=== PATIENT | male | born 1965 | race Caucasian/White ===

== ENCOUNTER 2023-05-03 17:53 | Emergency (ER) | payer OTHER, SELFPAY ==
[2023-05-03] VITALS (18 sets, daily range): BP systolic 133–166; BP diastolic 73–96; PULSE 62–134; RESP 10–23; TEMP 36.5; O2SAT 96–100; BMI 30.9
--- NOTE | 2023-05-03 18:09 | DI.RAD.S_ITS ---
PROCEDURE: XR CHEST 1V INDICATIONS: chest pain TECHNIQUE: One view of the chest was acquired. COMPARISON: None. FINDINGS: Surgical changes and devices: Upper abdominal postoperative changes are seen. Lungs and pleura: An incomplete inspiratory result is noted, causing a crowded appearance to the lung markings. No focal infiltrates are seen. No pneumothorax or significant pleural effusions are seen. Mediastinum: Mediastinal contours appear normal. Heart size is normal. Bones and chest wall: No suspicious bony lesions. Age-appropriate bony degenerative changes are seen. Overlying soft tissues appear unremarkable. IMPRESSION: Limited portable chest examination, without a significant cardiopulmonary abnormality identified. Postoperative and degenerative changes are seen. Dictated by: Chavo Garzon M.D. on 05/03/2023 at 17:51 Approved by: Chavo Garzon M.D. on 05/03/2023 at 17:51
[2023-05-03 18:39] LABS: Add Manual Diff / Slide Review NO; Basophils Absolute Auto 0 /uL (0-100); Basophils Percent Auto 0.5 % (0-2); Eosinophils Absolute Auto 100 /uL (0-450); Eosinophils Percent Auto 1.2 % (2-4); Hematocrit 51.2 % (41-53); Hemoglobin 17.8 g/dL (13.5-17.5); Lymphocytes Absolute Auto 2400 /uL (1100-4500); Lymphocytes Percent Auto 23.3 % (25-40); Mean Corpuscular HGB Conc 34.8 % (30-36); Mean Corpuscular Hemoglobin 29.9 PG (26-34); Mean Corpuscular Volume 85.7 fL (80-100); Monocytes Absolute Auto 800 /uL (0-900); Monocytes Percent Auto 7.8 % (3-14); Neutrophils Absolute Auto 6900 /uL (1500-7000); Neutrophils Percent Auto 67.2 % (50-75); Platelet Count 215 X10^3/uL (150-400); Red Blood Cell Count 5.97 X10^6/uL (4.5-5.9); Red Cell Distribution Width 13.2 % (11.6-14.8); White Blood Cell Count 10.3 X10^3/uL (4.5-11.0)
[2023-05-03 18:50] LABS: PTT Partial Thromboplastin Tim 31 SECONDS (26-36)
[2023-05-03 18:53] LABS: Alanine Aminotransferase 60 IU/L (<50); Albumin 4.4 g/dL (3.5-5.0); Albumin Globulin Ratio 1.5 (1.0-2.8); Alkaline Phosphatase 46 U/L (38-126); Aspartate Aminotransferase 46 IU/L (17-59); Bilirubin Total 0.7 mg/dL (0.2-1.3); Blood Urea Nitrogen 19 mg/dL (9-20); Calcium 9.3 mg/dL (8.4-10.2); Carbon Dioxide 24 mmol/L (22-32); Chloride 102 mmol/L (98-107); Creatine Kinase 442 U/L (55-170); Estimated Glomerular Filt Rate > 60 mL/min (>60); Glucose 107 mg/dL (70-100); HEMOLYSIS 41 (0-50); Lipase 87 U/L (23-300); Magnesium 1.9 mg/dL (1.6-2.3); Potassium 4.1 mmol/L (3.4-5.1); Sodium 136 mmol/L (137-145); Total Protein 7.4 g/dL (6.3-8.2)
[2023-05-03 19:03] LABS: Troponin I 0.021 ng/mL (0.01-0.034)
[2023-05-03] MEDS: dilTIAZem 5 MG/ML SDV 10 MG IV (20:01)
[2023-05-03] MEDS: SODIUM CHLORIDE 0.9% 1,000 ML 1000 ML IV (20:01)
[2023-05-03 20:03] LABS: D Dimer 242 ng/ml (<500)
[2023-05-03 20:14] LABS: NT-proBNP (BNP-Adult 18+) 1110 pg/mL (<125)
[2023-05-03] MEDS: DILTIAZEM 125 MG/125 ML PIGGYBACK IV (22:12)
--- NOTE | 2023-05-03 22:23 | ED.CHESTPAIN ---
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 They were visiting [place] and thought it was from [place] but has been slowly progressive. He is little bit worse when he ambulates. He denies pain but does state there is some tightness. He is felt little lightheaded but no syncope. He states that is only when he is ambulating no cough cold or congestion. Patient states no orthopnea. No nausea or vomiting, no diaphoresis. No new swelling in extremities. No new urinary symptoms. Patient had little bit of diarrhea for the past 2 days which has since stopped. No black or bloody stools. Patient states no medical problems currently. No daily medications. He would a large cyst removed when he was at child from his abdomen. He had a GI bleed several years ago and had coiling of the mesenteric vessel. No known drug allergies. No tobacco, 1 or 2 alcoholic drinks weekly, no illicit. Patient's states he does not really follow regularly with a primary care. His who is at bedside was a nurse practitioner with a local cardiology group. They note that his dad has a history of atrial fibrillation and CHF. Related Data Previous Rx's Medication Instructions Recorded diltiazem HCl 180 mg 180 mg PO DAILY #10 caps 05/03/23 capsule,extended release 24 hr Allergies Allergy/AdvReac Type Severity Reaction Status Date / Time No Known Drug Allergies Allergy Verified 05/03/23 18:02 Review of Systems Review of Systems ROS Unobtainable: All systems reviewed & are unremarkable except as noted in HPI and below Patient History Medical History GI bleed Social History Smoking Status: Never smoker Smoking Status: Never smoker alcohol intake frequency: holidays/special occasions only Substance Use Type: does not use Exam Narrative Exam Narrative: GENERAL: Alert and oriented x three, male in mild distress. HEENT: Head normocephalic, atraumatic, EOMI, pupils reactive, face symmetric, moist mucous membranes NECK: Supple, full range of motion CARDIOVASCULAR: Irregularly regular rate and rhythm without murmurs, rubs or gallops. No JVD. No swelling bilateral lower extremities. RESPIRATORY: Breath sounds equal bilaterally, no wheezes rales or rhonchi. No tachypnea, no accessory muscle use. Speaks in full sentences. ABDOMEN: Soft, nontender. Normoactive bowel sounds all 4 quadrants. No guarding or rebound, rigidity, no mass, patient has large oblique incision that is clearly healed his left abdomen. : No CVA tenderness EXTREMITIES: Normal range of motion, no clubbing or edema. 2+ pulses bilateral lower extremities. Neurovascularly intact NEUROLOGICAL: Cranial nerves II through XII grossly intact. Moving all extremities SKIN: Warm, dry, no petechiae, no rashes or lesions. Initial Vital Signs Initial Vital Signs: Vital Signs Temperature 97.7 F 05/03/23 18:02 Pulse Rate 62 05/03/23 18:02 Respiratory Rate 17 05/03/23 18:02 Blood Pressure 141/81 H 05/03/23 18:02 Pulse Oximetry 100 05/03/23 18:02 Oxygen Delivery Method Room Air 05/03/23 18:02 Course Orders Ordered: Discontinued Medications Aspirin (Aspirin 81 Mg Chew Tab) 324 mg PO NOW ONE Stop: 05/03/23 18:10 Last Admin: 05/03/23 19:58 Dose: Not Given Documented By: Diltiazem HCl (Diltiazem 5 Mg/Ml Sdv) 10 mg IV NOW ONE Stop: 05/03/23 19:54 Last Admin: 05/03/23 20:01 Dose: 10 mg Documented By: Diltiazem HCl (Diltiazem Cd 180 Mg Cap) 180 mg PO NOW ONE Stop: 05/03/23 22:48 Last Admin: 05/03/23 22:57 Dose: 180 mg Documented By: Sodium Chloride (Normal Saline 0.9%) 1,000 mls @ 1,000 mls/hr IV BOLUS ONE Stop: 05/03/23 20:52 Last Infusion: 05/03/23 20:42 Dose: 0 mls/hr Documented By: Admin: 05/03/23 20:01 Dose: 1,000 mls/hr Documented By: DILTIAZEM (Diltiazem 125 Mg/125 Ml-D5w) 125 mg in 125 mls @ 5 mls/hr IV TITRATE CORINNE; Protocol Last Titration: 05/03/23 22:56 Dose: 0 mg/hr, 0 mls/hr Documented By: Titration: 05/03/23 22:32 Dose: 10 mg/hr, 10 mls/hr Documented By: Admin: 05/03/23 22:12 Dose: 5 mg/hr, 5 mls/hr Documented By: Vital Signs Vital signs: Vital Signs - 8 hr 05/03/23 22:15 05/03/23 22:30 05/03/23 22:30 Pulse Rate 116 H 128 H Respiratory Rate 20 19 Blood Pressure 160/91 H Pulse Oximetry 98 97 05/03/23 22:45 05/03/23 22:45 05/03/23 23:00 Pulse Rate 128 H Respiratory Rate 22 Blood Pressure 157/93 H 151/80 H Pulse Oximetry 98 05/03/23 23:00 Pulse Rate 117 H Respiratory Rate 21 Blood Pressure Pulse Oximetry 98 MDM - Chest Pain Lab Data 05/03/23 18:30 05/03/23 18:30 Labs: Lab Results 05/03/23 05/03/23 05/03/23 Range/Units 18:30 18:30 18:30 WBC 10.3 (4.5-11.0) X10^3/uL RBC 5.97 H (4.5-5.9) X10^6/uL Hgb 17.8 H (13.5-17.5) g/dL Hct 51.2 (41-53) % MCV 85.7 (80-100) fL MCH 29.9 (26-34) PG MCHC 34.8 (30-36) % RDW 13.2 (11.6-14.8) % Plt Count 215 (150-400) X10^3/uL Neut % (Auto) 67.2 (50-75) % Lymph % (Auto) 23.3 L (25-40) % [place] % (Auto) 7.8 (3-14) % Eos % (Auto) 1.2 L (2-4) % Baso % (Auto) 0.5 (0-2) % Neut # (Auto) 6900 (7581-7114) /uL Lymph # (Auto) 2400 (2048-1600) /uL [place] # (Auto) 800 (0-900) /uL Eos # (Auto) 100 (0-450) /uL Baso # (Auto) 0 (0-100) /uL PT 11.0 (10.1-12.7) SECONDS INR 1.0 (0.9-1.3) APTT 31 (26-36) SECONDS D-Dimer (<500) ng/ml Sodium 136 L (137-145) mmol/L Potassium 4.1 (3.4-5.1) mmol/L Chloride 102 (98-107) mmol/L Carbon Dioxide 24 (22-32) mmol/L BUN 19 (9-20) mg/dL Creatinine 1.27 H (0.66-1.25) mg/dL Estimated GFR > 60 (>60) mL/min BUN/Creatinine Ratio 15.0 (6-22) Glucose 107 H (70-100) mg/dL Calcium 9.3 (8.4-10.2) mg/dL Magnesium 1.9 (1.6-2.3) mg/dL Total Bilirubin 0.7 (0.2-1.3) mg/dL AST 46 (17-59) IU/L ALT 60 H (<50) IU/L Alkaline Phosphatase 46 (38-126) U/L Total Creatine Kinase 442 H (55-170) U/L Troponin I 0.021 (0.01-0.034) ng/mL NT-Pro-B Natriuret Pep (<125) pg/mL Total Protein 7.4 (6.3-8.2) g/dL Albumin 4.4 (3.5-5.0) g/dL Globulin 3.0 (1.7-4.1) g/dL Albumin/Globulin Ratio 1.5 (1.0-2.8) Lipase 87 (23-300) U/L 05/03/23 05/03/23 Range/Units 18:30 18:30 WBC (4.5-11.0) X10^3/uL RBC (4.5-5.9) X10^6/uL Hgb (13.5-17.5) g/dL Hct (41-53) % MCV (80-100) fL MCH (26-34) PG MCHC (30-36) % RDW (11.6-14.8) % Plt Count (150-400) X10^3/uL Neut % (Auto) (50-75) % Lymph % (Auto) (25-40) % [place] % (Auto) (3-14) % Eos % (Auto) (2-4) % Baso % (Auto) (0-2) % Neut # (Auto) (3627-5802) /uL Lymph # (Auto) (3102-0474) /uL [place] # (Auto) (0-900) /uL Eos # (Auto) (0-450) /uL Baso # (Auto) (0-100) /uL PT (10.1-12.7) SECONDS INR (0.9-1.3) APTT (26-36) SECONDS D-Dimer 242 (<500) ng/ml Sodium (137-145) mmol/L Potassium (3.4-5.1) mmol/L Chloride (98-107) mmol/L Carbon Dioxide (22-32) mmol/L BUN (9-20) mg/dL Creatinine (0.66-1.25) mg/dL Estimated GFR (>60) mL/min BUN/Creatinine Ratio (6-22) Glucose (70-100) mg/dL Calcium (8.4-10.2) mg/dL Magnesium (1.6-2.3) mg/dL Total Bilirubin (0.2-1.3) mg/dL AST (17-59) IU/L ALT (<50) IU/L Alkaline Phosphatase (38-126) U/L Total Creatine Kinase (55-170) U/L Troponin I (0.01-0.034) ng/mL NT-Pro-B Natriuret Pep 1110 H (<125) pg/mL Total Protein (6.3-8.2) g/dL Albumin (3.5-5.0) g/dL Globulin (1.7-4.1) g/dL Albumin/Globulin Ratio (1.0-2.8) Lipase (23-300) U/L Imaging Data Chest x-ray: Radiologist's Impression: Close Chest X-Ray (Signed) Chavo Garzon - 05/03/23 Launch?[address] [address] XRay Report Signed Patient: Sohan Brown MR#: [id number] : 1965 Acct:[id number] Age/Sex: 57 / M Date of Service: 05/03/23 Loc: ED Accession Number: [id number] ?? Procedure: XR chest 1V Ordering Provider: Jacinta Negrete D.O. PROCEDURE:? XR CHEST 1V ? INDICATIONS:? chest pain ? TECHNIQUE:? One view of the chest was acquired.? ? COMPARISON:? None. ? FINDINGS:? ? Surgical changes and devices:? Upper abdominal postoperative changes are seen. ? Lungs and pleura:? An incomplete inspiratory result is noted, causing a crowded appearance to the lung markings.? No focal infiltrates are seen.? No pneumothorax or significant pleural effusions are seen. ? ? Mediastinum:? Mediastinal contours appear normal.? Heart size is normal.? ? Bones and chest wall:? No suspicious bony lesions.? Age-appropriate bony degenerative changes are seen.? Overlying soft tissues appear unremarkable.? ? ? IMPRESSION:? ? Limited portable chest examination, without a significant cardiopulmonary abnormality identified.? ? Postoperative and degenerative changes are seen.? Dictated by: Chavo Garzon M.D. on 05/03/2023 at 17:51 ? ? Approved by: Chavo Garzon M.D. on 05/03/2023 at 17:51?? ECG Data Attestation: I personally reviewed and interpreted this ECG as follows: Interpretation: EKG 1 AFib with RVR, rate of 133, QRS 80, QTC 398. No acute ST elevation depression. EKG 2 AFib RVR rate of 124 QRS is [address] QTC [address] No acute ST elevation, no significant dynamic changes noted. EKG 2. AFib rate of 108 QRS 80 QTC 444. No dynamic changes appears similar to prior nonspecific change. MDM Narrative Medical decision making narrative: 57-year-old male presents with complaint of chest tightness for the past 3 days he does not have any sensation of fast heart rate, appears to have been in AFib RVR likely for the past 3 days. He is had some mild shortness of breath lightheadedness worse with exertion. He has been maintaining his blood pressure. Labs show hemoglobin of 17 white count of 10.3 platelets of 215 coags are negative D-dimer is negative, creatinine is 1.27, his states that is his normal baseline. BUN 19, potassium is 4.1 with sodium 136 Mag is 1.9, ALT is total CK 442 troponins 0.021 BNP is 11 10. Patient chest x-ray shows no acute change EKG showed AFib RVR, no dynamic changes. Patient states he is feeling comfortable currently. Discussed with patient he received 10 mg of dealt had some slowing but continued to be tachycardic does not feel to be patient for a cardioversion as it has been 3 days and may have been in AFib before this. Patient was put on Dilt drip. Patient does not wish to stay, he understands risks versus benefits and discuss these with his who has been a cardiology nurse practitioner in the past. He elects to return home we will give a dose of oral medication for rate control prescription. Discussed anticoagulation with his history of GI bleed we will hold off at this point and they will discuss with Cardiology. states she can facilitate short-term follow-up. Discussed BNP is elevated but no priors for comparison no other changes consistent with heart failure acutely at this time will hold off on any diuretic. Discussed return precautions. Patient was told he can return at any time. Discussed that , CA, stroke or all potentials and that patient should not discharge home. Patient and both expressed understanding. Discharge Plan Departure Patient Disposition: Left Against Medical Advice Clinical Impression: Atrial fibrillation with rapid ventricular response, Elevated brain natriuretic peptide (BNP) level, Left against medical advice Activity Restrictions/Additional Instructions: Please follow-up with your physician/Cardiology for recheck in the next 24-48 hours. Please call for an appointment. It is not recommended that you discharge home, I recommend that we keep you with medication running continuously 3 or IV to control her atrial fibrillation and help prevent worsening cardiac issues, heart failure, CA or potential . Take diltiazem, this may not adequately control your heart rate you may need adjustment of your medication. Prescription sent to [facility] in [place]. Talk with your physician about anticoagulation and your history of gi bleed. Please return for new or worsening symptoms new chest pain, lightheadedness, passing out, increasing shortness of breath, new swelling in your extremities, if you are having any worsening symptoms or would like to return for further treatment at any time. Prescriptions: New diltiazem HCl 180 mg capsule,extended release 24hr 180 mg PO DAILY Qty: 10 0RF Stand Alone Forms: Against Medical Advice
[2023-05-03] MEDS: dilTIAZem CD 180 MG CAP PO (22:57)
== END 2023-05-03 23:07 | disposition left against medical advice (07) ==
PROVIDERS: Emergency Provider Emergency Medicine; PCP Nurse Practitioner
DX: I48.20 Chronic atrial fibrillation, unspecified (principal); R79.89 Other specified abnormal findings of blood chemistry
CPT/HCPCS: 36415; 71045; 80053; 82550; 83690; 83735; 83880; 84484; 85025; 85379; 85610; 85730; 93005; 96361; 96365; 96375; 99284

== ENCOUNTER 2025-07-26 16:31 | Emergency (ER) | payer MEDICAID, SELFPAY ==
--- OUTSIDE RECORDS SUMMARY | 2025-07-26 16:33 | XMS_ITS | Clinical Summary ---
Author Organization [facility] Address [address] [place] [address] Care Team Providers Care Lure Maker Name Role Phone Pcp, None Selected Primary Care Provider Unavail able Social History Tobacco Use Types Packs/Day Years Used Date Smoking Tobacco: Never Assessed Sex and Gender Information Value Date Recorded Sex Assigned at Not on file Legal Sex Male 12:24 PM PDT Gender Identity Not on file Sexual Orientation Not on file Plan of Treatment Health Maintenance Due Date Last Done Comments PSA Screening Discussion 1965 MMR Vaccines (1 of 1 - Stand vicente series) 11/14/1967 Depression Screening (PHQ-2) 1978 DTaP,Tdap,and Td Vaccines (1 - Tdap) 1985 Hepatitis B Vaccines (1 of 3 - 19+ 3-dose series) 1985 Colorectal Cancer Screening (Colonoscopy) 11/14/2011 Colorectal Cancer Screening (FOBT) 11/14/2011 Colorectal Cancer Screening (Fecal DNA) 11/14/2011 Colorectal Cancer Screening Combined 11/14/2011 HM Pneumococcal Adult 50+ (1 of 1 - PCV) 2016 Zoster Vaccines (1 of 2) 2016 COVID-19 Vaccine (2024-2 6 season) 2025 Influenza Vaccine (#1) 2025 RSV Patients Over 60 years O R qualifying ( Patients) (1 - 1-dose 75+ series) 2041 HPV Vaccines Aged Out No longer eligi ble based on patient's age to complete this topic Hepatitis A Vaccines Aged Out No long er eligible based on patient's age to complete this topic IPV Vaccines Aged Out No longer eligi ble based on patient's age to complete this topic Insurance [facility] Care Teams Lure Maker Relationship Specialty Start Date End Date Pcp, None Selected PCP - General 11/23/24
[2025-07-26 16:43] VITALS: BP 161/94; PULSE 90; RESP 16; TEMP 36.8; O2SAT 96; BMI 33.1
--- NOTE | 2025-07-26 16:51 | DI.RAD.S_ITS ---
PROCEDURE: XR CHEST 1V INDICATIONS: Chest Pain TECHNIQUE: One view of the chest was acquired. COMPARISON: [facility], CR, XR CHEST 1V, 05/03/2023, 18:14. FINDINGS AND IMPRESSION: No airspace consolidation or pleural effusion on this single view study with low lung volumes. Normal heart size. Unchanged mediastinal contours. Degenerative osseous changes. Partially seen upper abdominal postsurgical changes. Dictated by: Roc Clark M.D. on 07/26/2025 at 17:32 Approved by: Roc Clark M.D. on 07/26/2025 at 17:32
--- NOTE | 2025-07-26 17:02 | EKG_ITS ---
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
[2025-07-26 17:31] LABS: Add Manual Diff / Slide Review NO; Hematocrit 46.8 % (41-53); Hemoglobin 16.4 g/dL (13.5-17.5); Lymphocytes Absolute Auto 1900 /uL (1100-4500); Mean Corpuscular HGB Conc 35.0 % (30-36); Mean Corpuscular Hemoglobin 29.6 PG (26-34); Mean Corpuscular Volume 84.6 fL (80-100); Platelet Count 239 X10^3/uL (150-400)
[2025-07-26 17:39] LABS: INR 1.0 (0.9-1.3); Prothrombin Time 10.8 SECONDS (9.4-12.5)
[2025-07-26 17:41] LABS: PTT Partial Thromboplastin Tim 29 SECONDS (25.1-36.5)
[2025-07-26 17:51] LABS: Alanine Aminotransferase 51 IU/L (<50); Albumin 4.6 g/dL (3.5-5.0); Albumin Globulin Ratio 1.6 (1.0-2.8); Alkaline Phosphatase 50 U/L (38-126); Blood Urea Nitrogen 23 mg/dL (9-20); Calcium 9.4 mg/dL (8.4-10.2); Carbon Dioxide 24 mmol/L (22-32); Chloride 106 mmol/L (98-107); Creatine Kinase 253 U/L (55-170); Estimated Glomerular Filt Rate > 60 mL/min (>60); Globulin 2.8 g/dL (1.7-4.1); Glucose 95 mg/dL (70-99); HEMOLYSIS 15 (0-50); Lipase 98 U/L (23-300); Magnesium 1.9 mg/dL (1.6-2.3); Potassium 4.3 mmol/L (3.4-5.1); Sodium 139 mmol/L (137-145); Total Protein 7.4 g/dL (6.3-8.2)
[2025-07-26 18:02] LABS: NT-proBNP (BNP-Adult 18+) 53 pg/mL (<125); Troponin I 0.028 ng/mL (0.01-0.034)
--- NOTE | 2025-07-26 18:18 | ED.CHESTPAIN ---
HPI - Chest Pain <Keturah Vieira PA-C - Last Filed: 07/26/25 19:38> General Chief Complaint: Chest Pain Stated Complaint: Stomach pressure, AFIB x2 Time Seen by Provider: 07/26/25 17:05 Source: patient Mode of arrival: Family Vehicle Limitations: no limitations History of Present Illness HPI narrative: Mr. Brown is a pleasant 51-year-old male with a past medical history of AFib RVR, pancreatic pseudocyst surgery 14 years old, Gi bleed 5 years ago who presents to the emergency department for worsening abdominal pain and bloating x2 months with increased pain over the last 2 days. Patient describes diffuse abdominal bloating and pressure-like pain that is causing acid reflux and pain with deep breathing. He also notes that his heart rate seemed to go into AFib a few times over the last 2 days. He does not take any daily prescription medications, no blood thinner use. Denies history of CAD, mi or CVA. Denies vomiting, diarrhea, black or bloody stool, dysuria, hematuria, back pain, chest pain, shortness of breath. Related Data Previous Rx's ?Medication ?Instructions ?Recorded diltiazem HCl 180 mg 180 mg PO DAILY #10 caps 05/03/23 capsule,extended release 24 hr Allergies Allergy/AdvReac Type Severity Reaction Status Date / Time No Known Drug Allergies Allergy Verified 07/26/25 16:43 Review of Systems <Keturah Vieira PA-C - Last Filed: 07/26/25 19:38> Review of Systems ROS Unobtainable: All systems reviewed & are unremarkable except as noted in HPI and below Patient History <Keturah Vieira PA-C - Last Filed: 07/26/25 19:38> Medical History GI bleed Social History Smoking Status: Never smoker Smoking Status: Never smoker alcohol intake frequency: holidays/special occasions only Exam <Keturah Vieira PA-C - Last Filed: 07/26/25 19:38> Narrative Exam Narrative: GENERAL: 59 year old patient appears stated age. Well-developed patient, in no acute distress. HEAD: Atraumatic. Normocephalic. EYES: No scleral icterus. No injection or drainage. NECK: Trachea midline. Cervical ROM intact. CARDIOVASCULAR: Regular rate and rhythm. RESPIRATORY: ?Nonlabored respirations. ?Speaking in clear, full sentences. ?Clear to auscultation. Breath sounds equal bilaterally. No wheezes, rales, or rhonchi. ? GASTROINTESTINAL: Abdomen soft, somewhat protuberant. Large abdominal scar from prior surgery. No rebound or guarding. Bowel sounds are present. EXTREMITIES: No LE edema or tenderness. NEURO: AOx3. ?Clear speech. ?Moves all 4 extremities appropriately. SKIN: No rash or erythema of visible areas Initial Vital Signs Initial Vital Signs: Vital Signs Temperature 98.3 F 07/26/25 16:43 Pulse Rate 90 07/26/25 16:43 Respiratory Rate 16 07/26/25 16:43 Blood Pressure 161/94 H 07/26/25 16:43 Pulse Oximetry 96 07/26/25 16:43 Oxygen Delivery Method Room Air 07/26/25 16:43 <Benjy Machado, DO - Last Filed: 07/27/25 00:57> Initial Vital Signs Initial Vital Signs: Vital Signs Temperature 98.3 F 07/26/25 16:43 Pulse Rate 90 07/26/25 16:43 Respiratory Rate 16 07/26/25 16:43 Blood Pressure 161/94 H 07/26/25 16:43 Pulse Oximetry 96 07/26/25 16:43 Oxygen Delivery Method Room Air 07/26/25 16:43 Scores <Benjy Machado, DO - Last Filed: 07/27/25 00:57> HEART Score Heart Score history: Slightly Suspicious Heart Score EKG: Normal Heart Score Age: 45-64 years old Heart Score risk factors: No known risk factors Heart Score troponin: < or = to normal limit Heart Score Total: 1 Course <Keturah Vieira PA-C - Last Filed: 07/26/25 19:38> Orders Ordered: ED Orders 07/26/25 16:51 XR chest 1V Stat EKG-12 Lead Stat 07/26/25 17:05 CT abdomen pelvis w con Stat 07/26/25 17:20 Complete Blood Count AUTO DIFF Stat Comprehensive Metabolic Panel Stat Lipase Stat Magnesium Stat NT-proBNP (BNP-Adult 18+) Stat PTT Partial Thromboplastin Mychal Stat Prothrombin Time INR Stat Troponin & CK Cardiac Panel Stat 07/26/25 19:55 Trop I [Troponin I] Stat Discontinued Medications Aspirin (Aspirin 81 Mg Chew Tab) 324 mg PO NOW ONE Stop: 07/26/25 16:51 Last Admin: 07/26/25 17:29 Dose: Not Given Documented By: YODIT Aspirin (Aspirin 81 Mg Chew Tab) 324 mg PO NOW ONE Stop: 07/26/25 18:18 Last Admin: 07/26/25 18:58 Dose: 324 mg Documented By: DELLA Sodium Chloride (Normal Saline 0.9%) 1,000 mls @ 1,000 mls/hr IV BOLUS ONE Stop: 07/26/25 19:01 Last Infusion: 07/26/25 20:00 Dose: Infused Documented By: Admin: 07/26/25 18:57 Dose: 1,000 mls/hr Documented By: DELLA Ondansetron HCl (Ondansetron 4 Mg/2 Ml Inj) 4 mg IV NOW PRN PRN Reason: Nausea And Vomiting Ondansetron HCl (Ondansetron 4 Mg Odt) 4 mg PO NOW PRN PRN Reason: Nausea And Vomiting Vital Signs Vital signs: Vital Signs - 8 hr 07/26/25 21:12 Pulse Rate 71 Respiratory Rate 16 Blood Pressure 144/89 H Pulse Oximetry 97 Oxygen Delivery Method Room Air <Benjy Machado, DO - Last Filed: 07/27/25 00:57> Orders Ordered: ED Orders 07/26/25 16:51 XR chest 1V Stat EKG-12 Lead Stat 07/26/25 17:05 CT abdomen pelvis w con Stat 07/26/25 17:20 Complete Blood Count AUTO DIFF Stat Comprehensive Metabolic Panel Stat Lipase Stat Magnesium Stat NT-proBNP (BNP-Adult 18+) Stat PTT Partial Thromboplastin Mychal Stat Prothrombin Time INR Stat Troponin & CK Cardiac Panel Stat 07/26/25 19:55 Trop I [Troponin I] Stat Discontinued Medications Aspirin (Aspirin 81 Mg Chew Tab) 324 mg PO NOW ONE Stop: 07/26/25 16:51 Last Admin: 07/26/25 17:29 Dose: Not Given Documented By: YODIT Aspirin (Aspirin 81 Mg Chew Tab) 324 mg PO NOW ONE Stop: 07/26/25 18:18 Last Admin: 07/26/25 18:58 Dose: 324 mg Documented By: DELLA Sodium Chloride (Normal Saline 0.9%) 1,000 mls @ 1,000 mls/hr IV BOLUS ONE Stop: 07/26/25 19:01 Last Infusion: 07/26/25 20:00 Dose: Infused Documented By: Admin: 07/26/25 18:57 Dose: 1,000 mls/hr Documented By: DELLA Ondansetron HCl (Ondansetron 4 Mg/2 Ml Inj) 4 mg IV NOW PRN PRN Reason: Nausea And Vomiting Ondansetron HCl (Ondansetron 4 Mg Odt) 4 mg PO NOW PRN PRN Reason: Nausea And Vomiting Vital Signs Vital signs: Vital Signs - 8 hr 07/26/25 21:12 Pulse Rate 71 Respiratory Rate 16 Blood Pressure 144/89 H Pulse Oximetry 97 Oxygen Delivery Method Room Air MDM - Chest Pain <Keturah C ADARSH Vieira - Last Filed: 07/26/25 19:38> Medical Records Data Attestation: I reviewed the patient's medical records. Lab Data 07/26/25 17:20 07/26/25 17:20 Labs: Lab Results 07/26/25 07/26/25 Range/Units 17:20 19:55 WBC 8.6 (4.5-11.0) X10^3/uL RBC 5.53 (4.5-5.9) X10^6/uL Hgb 16.4 (13.5-17.5) g/dL Hct 46.8 (41-53) % MCV 84.6 (80-100) fL MCH 29.6 (26-34) PG MCHC 35.0 (30-36) % RDW 14.1 (11.6-14.8) % Plt Count 239 (150-400) X10^3/uL Neut % (Auto) 67.5 (50-75) % Lymph % (Auto) 21.5 L (25-40) % [place] % (Auto) 8.6 (3-14) % Eos % (Auto) 1.9 L (2-4) % Baso % (Auto) 0.5 (0-2) % Neut # (Auto) 5800 (0363-0202) /uL Lymph # (Auto) 1900 (7853-2952) /uL [place] # (Auto) 700 (0-900) /uL Eos # (Auto) 200 (0-450) /uL Baso # (Auto) 0 (0-100) /uL PT 10.8 (9.4-12.5) SECONDS INR 1.0 (0.9-1.3) APTT 29 (25.1-36.5) SECONDS Sodium 139 (137-145) mmol/L Potassium 4.3 (3.4-5.1) mmol/L Chloride 106 (98-107) mmol/L Carbon Dioxide 24 (22-32) mmol/L BUN 23 H (9-20) mg/dL Creatinine 1.19 (0.66-1.25) mg/dL Estimated GFR > 60 (>60) mL/min BUN/Creatinine Ratio 19.3 (6-22) Glucose 95 (70-99) mg/dL Calcium 9.4 (8.4-10.2) mg/dL Magnesium 1.9 (1.6-2.3) mg/dL Total Bilirubin 0.7 (0.2-1.3) mg/dL AST 38 (17-59) IU/L ALT 51 H (<50) IU/L Alkaline Phosphatase 50 (38-126) U/L Total Creatine Kinase 253 H (55-170) U/L Troponin I 0.028 0.025 (0.01-0.034) ng/mL NT-Pro-B Natriuret Pep 53 (<125) pg/mL Total Protein 7.4 (6.3-8.2) g/dL Albumin 4.6 (3.5-5.0) g/dL Globulin 2.8 (1.7-4.1) g/dL Albumin/Globulin Ratio 1.6 (1.0-2.8) Lipase 98 (23-300) U/L Urine Dip Bedside Urine Glucose Negative Bedside Urine Bilirubin - Negative Bedside Urine Ketone - Negative Urine Specific [place] 1.010 Bedside Urine Occult Blood - Negative Bedside Urine pH 6.0 Bedside Urine Protein - Negative Bedside Urine Urobilinogen - Negative Bedside Urine Nitrite - Negative Bedside Urine Leukocytes - Negative Esterase MDM Narrative Medical decision making narrative: 51-year-old male with a past medical history of AFib RVR, pancreatic pseudocyst surgery 14 years old, Gi bleed 5 years ago who presents to the emergency department for worsening abdominal pain and bloating x2 months with increased pain over the last 2 days. Differential diagnosis includes but is not limited to a typical angina, colitis, pancreatitis, pancreatic cyst, hepatic cyst, hepatic steatosis, GERD, etc. On exam the patient is in no acute distress, nontoxic appearing, vital signs appropriate except for mildly elevated blood pressure 161/94. He is here for worsening abdominal bloating now causing acid reflux pain with deep breathing decreased appetite. He does have a history of AFib RVR, large pancreatic pseudocyst removal and GI bleed but he is not currently on any medications. No black or bloody stools or vomiting. No fevers. Concern for epigastric abdominal pain possible atypical angina we will obtain cardiac and abdominal workup, chest x-ray and CT abdomen and pelvis. Patient's initial troponin negative but detectable, 0.028. We will repeat 2 hours. BNP is negative. Total CK is slightly elevated to 53. ALT slightly elevated 51. Normal lipase 98. Remainder of LFTs normal. BUN 23 creatinine 1.19. Normal sodium 139 potassium 4.3. Normal WBC count 8.6. Platelets 239. We will treat with aspirin and fluids. 1930: Checked on patient, updated him of results. Encouraged him to provide urine sample. He denies any chest pain shortness of breath reports he is just feeling abdominal bloating at this time. At this time we are awaiting abdomen pelvis CT and chest x-ray in addition to urinalysis. He will need 2 hour repeat trop as well. <Benjy Machado, DO - Last Filed: 07/27/25 00:57> Lab Data Labs: Lab Results 07/26/25 07/26/25 Range/Units 17:20 19:55 WBC 8.6 (4.5-11.0) X10^3/uL RBC 5.53 (4.5-5.9) X10^6/uL Hgb 16.4 (13.5-17.5) g/dL Hct 46.8 (41-53) % MCV 84.6 (80-100) fL MCH 29.6 (26-34) PG MCHC 35.0 (30-36) % RDW 14.1 (11.6-14.8) % Plt Count 239 (150-400) X10^3/uL Neut % (Auto) 67.5 (50-75) % Lymph % (Auto) 21.5 L (25-40) % [place] % (Auto) 8.6 (3-14) % Eos % (Auto) 1.9 L (2-4) % Baso % (Auto) 0.5 (0-2) % Neut # (Auto) 5800 (3543-2430) /uL Lymph # (Auto) 1900 (7740-5359) /uL [place] # (Auto) 700 (0-900) /uL Eos # (Auto) 200 (0-450) /uL Baso # (Auto) 0 (0-100) /uL PT 10.8 (9.4-12.5) SECONDS INR 1.0 (0.9-1.3) APTT 29 (25.1-36.5) SECONDS Sodium 139 (137-145) mmol/L Potassium 4.3 (3.4-5.1) mmol/L Chloride 106 (98-107) mmol/L Carbon Dioxide 24 (22-32) mmol/L BUN 23 H (9-20) mg/dL Creatinine 1.19 (0.66-1.25) mg/dL Estimated GFR > 60 (>60) mL/min BUN/Creatinine Ratio 19.3 (6-22) Glucose 95 (70-99) mg/dL Calcium 9.4 (8.4-10.2) mg/dL Magnesium 1.9 (1.6-2.3) mg/dL Total Bilirubin 0.7 (0.2-1.3) mg/dL AST 38 (17-59) IU/L ALT 51 H (<50) IU/L Alkaline Phosphatase 50 (38-126) U/L Total Creatine Kinase 253 H (55-170) U/L Troponin I 0.028 0.025 (0.01-0.034) ng/mL NT-Pro-B Natriuret Pep 53 (<125) pg/mL Total Protein 7.4 (6.3-8.2) g/dL Albumin 4.6 (3.5-5.0) g/dL Globulin 2.8 (1.7-4.1) g/dL Albumin/Globulin Ratio 1.6 (1.0-2.8) Lipase 98 (23-300) U/L Urine Dip Bedside Urine Glucose Negative Bedside Urine Bilirubin - Negative Bedside Urine Ketone - Negative Urine Specific [place] 1.010 Bedside Urine Occult Blood - Negative Bedside Urine pH 6.0 Bedside Urine Protein - Negative Bedside Urine Urobilinogen - Negative Bedside Urine Nitrite - Negative Bedside Urine Leukocytes - Negative Esterase Imaging Data CT scan - abdomen/pelvis: Radiologist's Impression: [address] [address] [address] Scan Report Signed Patient: Sohan Brown MR#: [id number] : 1965 Acct:[id number] Age/Sex: 59 / M Date of Service: 07/26/25 Loc: ED Accession Number: [id number] Procedure: CT abdomen pelvis w con Ordering Provider: Keturah Vieira PA-C PROCEDURE: CT ABDOMEN PELVIS W CON INDICATIONS: abd boating; epigastric pain; reflux; hx pancreas surgery TECHNIQUE: After the administration of intravenous contrast, axial sections acquired from the lung bases to the pubic symphysis. Coronal and sagittal reformats were performed. For radiation dose reduction, the following was used: automated exposure control, adjustment of mA and/or kV according to patient size. COMPARISON: None. FINDINGS: Image quality: Diagnostic Lower chest: Unremarkable lung bases. Normal heart size. Liver: Suspect hepatic steatosis. More focal hypoattenuating region is seen in the subcapsular region of segment 6 measuring 2.5 cm (2/49) Gallbladder and biliary system: Unremarkable, nondilated Pancreas: No ductal dilation. Surgical changes seen adjacent to the pancreas. Spleen: Borderline splenomegaly, measuring 14 cm Adrenals: No discrete nodules Kidneys: Right upper pole renal cyst with a small peripheral calcification. No hydronephrosis. No solid renal mass. Vessels and lymph nodes: The main portal vein is patent. No abdominal aneurysm. No lymph nodes enlarged by size criteria. Bowel and peritoneum: Duodenal diverticula are seen. No bowel obstruction. Colonic diverticula. No definite acute diverticular inflammation. Nondilated appendix. No drainable abscess or ascites Body wall: Small fat containing inguinal hernias. Pelvis: Enlarged prostate with heterogeneous enhancement, not well assessed on CT. Consider PSA correlation Bladder is unremarkable. Bones: No aggressive appearing osseous abnormality. There are degenerative changes. IMPRESSION: No acute abdominal pelvic abnormality. Suspect hepatic steatosis. More focal lesions seen in segment 6, possibly hemangioma although not confirmed on this study. Nonurgent liver MRI suggested. Surgical changes seen adjacent to the pancreas. No ductal dilation. No acute inflammation by CT Enlarged prostate with heterogeneous enhancement, consider PSA correlation if clinically indicated Other findings above Dictated by: Roc Clark M.D. on 07/26/2025 at 18:52 Approved by: Roc Clark M.D. on 07/26/2025 at 18:58 ECG Data Interpretation: NSR HR 79 [place] 154 QRS [address]-t wave change Change from 05/03/23 [facility] Narrative Medical decision making narrative: 51-year-old male with a past medical history of AFib RVR, pancreatic pseudocyst surgery 14 years old, Gi bleed 5 years ago who presents to the emergency department for worsening abdominal pain and bloating x2 months with increased pain over the last 2 days. Differential diagnosis includes but is not limited to a typical angina, colitis, pancreatitis, pancreatic cyst, hepatic cyst, hepatic steatosis, GERD, etc. On exam the patient is in no acute distress, nontoxic appearing, vital signs appropriate except for mildly elevated blood pressure 161/94. He is here for worsening abdominal bloating now causing acid reflux pain with deep breathing decreased appetite. He does have a history of AFib RVR, large pancreatic pseudocyst removal and GI bleed but he is not currently on any medications. No black or bloody stools or vomiting. No fevers. Concern for epigastric abdominal pain possible atypical angina we will obtain cardiac and abdominal workup, chest x-ray and CT abdomen and pelvis. Patient's initial troponin negative but detectable, 0.028. We will repeat 2 hours. BNP is negative. Total CK is slightly elevated to 53. ALT slightly elevated 51. Normal lipase 98. Remainder of LFTs normal. BUN 23 creatinine 1.19. Normal sodium 139 potassium 4.3. Normal WBC count 8.6. Platelets 239. We will treat with aspirin and fluids. 1930: Checked on patient, updated him of results. Encouraged him to provide urine sample. He denies any chest pain shortness of breath reports he is just feeling abdominal bloating at this time. At this time we are awaiting abdomen pelvis CT and chest x-ray in addition to urinalysis. He will need 2 hour repeat trop as well. [address] scan showed no acute process. Will have patient follow with pcp for further workup including possible GI referral. Discharge Plan Departure Patient Disposition: Home Clinical Impression: Abdominal distension Instructions: DI for Abdominal Pain-Adult Activity Restrictions/Additional Instructions: Return with new or worsening symptoms. Follow up with PCP regarding abdominal distention for further workup. Prescriptions: No Action diltiazem HCl 180 mg capsule,extended release 24hr 180 mg PO DAILY Qty: 10 0RF Referrals: Corazon Ghosh ARNP [Primary Care Provider, Cardiology] Stand Alone Forms: Patient Portal/API
[2025-07-26] MEDS: SODIUM CHLORIDE 0.9% 1,000 ML 1000 ML IV (18:57)
[2025-07-26] MEDS: ASPIRIN 81 MG CHEW TAB 324 MG PO (18:58)
--- NOTE | 2025-07-26 19:51 | EKG_ITS ---
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
[2025-07-26 20:39] LABS: Troponin I 0.025 ng/mL (0.01-0.034)
[2025-07-26 21:12] VITALS: BP 144/89; PULSE 71; RESP 16; O2SAT 97
== END 2025-07-26 21:22 | disposition home or self-care (01) ==
PROVIDERS: Physician Assistant; Emergency Provider Family Medicine; PCP Nurse Practitioner
DX: R14.0 Abdominal distension (gaseous) (principal); K21.9 Gastro-esophageal reflux disease without esophagitis; I48.91 Unspecified atrial fibrillation
CPT/HCPCS: 36415; 71045; 74177; 80053; 81003; 82550; 83690; 83735; 83880; 84484; 85025; 85610; 85730; 93005; 93010; 96360; 96361; 96374; 99284; J7030; Q9967